=== PATIENT | female | born 1950 | race Caucasian/White ===

== ENCOUNTER 2024-12-07 14:09 | Observation (INO) ==
[2024-12-07 15:11] LABS: INR 1.16 (0.85-1.14)
[2024-12-07 15:29] LABS: Hematocrit 41.8 % (35-45); Hemoglobin 13.7 g/dL (11.5-14.3); Mean Corpuscular Hemoglobin 30.6 pg (27-33); Mean Corpuscular Hgb Conc 32.9 g/dL (31-36); Mean Corpuscular Volume 93.1 fL (80-97); Red Blood Count 4.48 10^6/uL (3.63-4.92); Red Cell Distribution Width 14.5 % (12-17); White Blood Count 8.9 10^3/uL (3.8-11.8)
[2024-12-07 15:38] LABS: Albumin 4.3 g/dL (3.5-5.7); Albumin/Globulin Ratio 1.4 (1-3); Calcium 10.3 mg/dL (8.6-10.3); Creatinine, Serum 0.99 mg/dL (0.51-0.95); Magnesium 1.5 mg/dL (1.9-2.7); Potassium 4.9 mmol/L (3.5-5.0); Total Bilirubin 0.5 mg/dL (0.2-1.0); Total Protein 7.3 g/dL (6.4-8.9); eGFR CKD-EPI 59.8 (>60)
[2024-12-07 16:06] LABS: ABS Basophils 0.1 10^3/uL (0.0-0.1); ABS Eosinophils 0.1 10^3/uL (0.0-0.5); ABS Lymphocytes 2.2 10^3/uL (1.0-4.8); ABS Monocytes 0.7 10^3/uL (0.0-0.9); ABS Neutrophils 5.8 10^3/uL (1.5-7.6); Eosinophil % 1.3 %; Lymphocyte % 24.8 %; Mean Platelet Volume 8.8 fL (7.5-11.2); Platelet Count 350 10^3/uL (150-450)
[2024-12-07 16:36] LABS: High Sensitivity Troponin 1 Hr 6 pg/mL (<15)
[2024-12-07] MEDS ORDERED: Sulfur Hexaflouride MICROSPHR 25 MG VIAL IV PRN (21:12)
[2024-12-07] MEDS ORDERED: Dextrose 50% Syringe 50 ml 25 GM/50 ML SYRINGE IV PUSH PRN (21:32)
[2024-12-07] MEDS ORDERED: Albuterol/Ipratropium NEB.SOL (2.5/0.5 MG) 3 ML NEB.SOLN INH PRN (21:35)
[2024-12-07] MEDS: Aspirin EC 81 mg TAB.EC (enteric coated) PO SCH (22:39)
[2024-12-08] MEDS: Magnesium Sulf 4 GM/100 ML IV 4,000 MG/100 ML BAG IVPB ONE (00:36)
[2024-12-08 06:48] LABS: Hematocrit 40.7 % (35-45); Hemoglobin 13.3 g/dL (11.5-14.3); Mean Corpuscular Hemoglobin 30.2 pg (27-33); Mean Corpuscular Hgb Conc 32.6 g/dL (31-36); Mean Corpuscular Volume 92.7 fL (80-97); Red Blood Count 4.39 10^6/uL (3.63-4.92); Red Cell Distribution Width 14.6 % (12-17); White Blood Count 8.3 10^3/uL (3.8-11.8)
[2024-12-08 07:18] LABS: Calcium 9.7 mg/dL (8.6-10.3); Creatinine, Serum 0.87 mg/dL (0.51-0.95); Magnesium 2.5 mg/dL (1.9-2.7); Potassium 4.1 mmol/L (3.5-5.0); eGFR CKD-EPI 69.9 (>60)
[2024-12-08 07:25] LABS: ABS Basophils 0.1 10^3/uL (0.0-0.1); ABS Eosinophils 0.2 10^3/uL (0.0-0.5); ABS Lymphocytes 2.1 10^3/uL (1.0-4.8); ABS Neutrophils 4.9 10^3/uL (1.5-7.6); Eosinophil % 2.5 %; Lymphocyte % 25.5 %; Mean Platelet Volume 7.9 fL (7.5-11.2); Platelet Count 307 10^3/uL (150-450)
[2024-12-08 10:40] LABS: TSH Ultra Thyroid Stim Horm 0.83 mcIU/mL (0.34-5.60)
[2024-12-08 10:44] LABS: Free T4 1.28 ng/dL (0.61-1.12)
[2024-12-08] MEDS: Metoprolol Tartrate 5 mg VIAL 5 ml VIAL (1 mg/ml) IV PRN ×2 (11:20→18:31)
[2024-12-08 15:49] LABS: C Reactive Protein 2.38 mg/L (<8.01)
[2024-12-08] MEDS: Furosemide 20 mg/2 ml IV VIAL IV ONE (16:43)
[2024-12-08 19:59] LABS: Free T3 3.08 pg/mL (2.5-3.9)
[2024-12-09] MEDS: Metoprolol Tartrate 5 mg VIAL 5 ml VIAL (1 mg/ml) IV PRN (05:16)
[2024-12-09 06:48] LABS: Hematocrit 40.9 % (35-45); Hemoglobin 13.6 g/dL (11.5-14.3); Mean Corpuscular Hemoglobin 30.6 pg (27-33); Mean Corpuscular Hgb Conc 33.3 g/dL (31-36); Mean Corpuscular Volume 91.9 fL (80-97); Red Blood Count 4.45 10^6/uL (3.63-4.92); Red Cell Distribution Width 14.4 % (12-17); White Blood Count 9.3 10^3/uL (3.8-11.8)
[2024-12-09 06:49] LABS: Creatinine, Serum 1.11 mg/dL (0.51-0.95); Magnesium 1.8 mg/dL (1.9-2.7); Potassium 4.3 mmol/L (3.5-5.0); eGFR CKD-EPI 52.2 (>60)
[2024-12-09 08:47] LABS: ABS Basophils 0.1 10^3/uL (0.0-0.1); ABS Eosinophils 0.2 10^3/uL (0.0-0.5); ABS Lymphocytes 2.2 10^3/uL (1.0-4.8); ABS Monocytes 1.1 10^3/uL (0.0-0.9); ABS Neutrophils 5.7 10^3/uL (1.5-7.6); ABS Nucleated RBC 0.01 10^3/ul; Eosinophil % 1.9 %; Lymphocyte % 24.2 %; Mean Platelet Volume 8.5 fL (7.5-11.2); Nucleated Red Blood Cells % 0.1 %/100WBC (0.0-0.8); Platelet Count 337 10^3/uL (150-450)
[2024-12-09] MEDS: Magnesium Sulfate 2 gm BAG 2 GM/50 ML BAG IVPB ONE (09:00)
[2024-12-10 06:28] LABS: ABS Basophils 0.1 10^3/uL (0.0-0.1); ABS Eosinophils 0.2 10^3/uL (0.0-0.5); ABS Lymphocytes 2.6 10^3/uL (1.0-4.8); ABS Monocytes 0.9 10^3/uL (0.0-0.9); ABS Neutrophils 4.4 10^3/uL (1.5-7.6); Eosinophil % 2.3 %; Hematocrit 38.3 % (35-45); Hemoglobin 12.7 g/dL (11.5-14.3); Lymphocyte % 31.5 %; Mean Corpuscular Hemoglobin 30.2 pg (27-33); Mean Corpuscular Hgb Conc 33.2 g/dL (31-36); Mean Corpuscular Volume 91.2 fL (80-97); Platelet Count 302 10^3/uL (150-450); Red Cell Distribution Width 14.4 % (12-17); White Blood Count 8.2 10^3/uL (3.8-11.8)
[2024-12-10 07:28] LABS: Calcium 9.2 mg/dL (8.6-10.3); Creatinine, Serum 0.97 mg/dL (0.51-0.95); Magnesium 1.8 mg/dL (1.9-2.7); Potassium 4.3 mmol/L (3.5-5.0); eGFR CKD-EPI 61.3 (>60)
[2024-12-10] MEDS: Magnesium Sulfate 2 gm BAG 2 GM/50 ML BAG IVPB ONE (09:36)
[2024-12-10] MEDS: Furosemide 40 mg/4 ml IV VIAL IV SLOW PU ONE (20:28)
[2024-12-11] MEDS: Furosemide 40 mg/4 ml IV VIAL IV SLOW PU ONE (08:28)
[2024-12-11] MEDS ORDERED: Flumazenil 0.5 mg/5 ml 0.1 MG/ML 5 ml VIAL ONE (09:43)
[2024-12-11] MEDS ORDERED: fentaNYL 100 mcg/2 ml 50 MCG/ML VIAL ONE (09:43)
[2024-12-11] MEDS ORDERED: Naloxone 0.4 mg VIAL 0.4 mg/ml 1 ml VIAL ONE (09:43)
[2024-12-11] MEDS ORDERED: Midazolam 5 mg/5 ml VIAL 1 mg/ml 5 ml VIAL (5 mg) ONE (09:44)
[2024-12-11] MEDS ORDERED: Flumazenil 0.5 mg/5 ml 0.1 MG/ML 5 ml VIAL IV PRN (10:01)
[2024-12-11] MEDS ORDERED: Naloxone 0.4 mg VIAL 0.4 mg/ml 1 ml VIAL IV PUSH PRN (10:01)
[2024-12-11] MEDS: fentaNYL 100 mcg/2 ml 50 MCG/ML VIAL IV SLOW PU ONE (10:36)
[2024-12-11] MEDS: NS 0.9% 1000 ml BAG 1,000 ML IV ONE (10:36)
[2024-12-11] MEDS: Midazolam 10 mg/10 ml VIAL 1 mg/ml 10 ml VIAL (10 mg) IV SLOW PU ONE (10:37)
[2024-12-11 13:15] VITALS: BP 148/112
[2024-12-11 14:12] LABS: Creatinine, Serum 0.93 mg/dL (0.51-0.95); Magnesium 1.7 mg/dL (1.9-2.7); Potassium 4.3 mmol/L (3.5-5.0); eGFR CKD-EPI 64.1 (>60)
== END 2024-12-11 14:37 | disposition left against medical advice (07) ==
LOC: EDHOLD 14:09 → ED 14:09 → EDBD 19:23 → SUATTDRO 19:23 → MEDTELE 21:28
PROVIDERS: ADMIT Internal Medicine; ATTEND Student in an Organized Health Care Education/Training Program